=== PATIENT | female | born 1995 | race Caucasian/White ===

== ENCOUNTER 2016-06-09 16:44 | Emergency (ER) | payer OTHER ==
[2016-06-09] MEDS ORDERED: METHOCARBAMOL 500 MG TAB As Ordered ONE (18:19)
[2016-06-09] MEDS ORDERED: ACETAMINOPHEN 325 MG TAB As Ordered ONE (18:20)
--- NOTE | 2016-06-09 19:58 | REP ---
Clinical: Deformity and swelling . Technique: Internal rotation, external rotation, and Y view left shoulder . Findings: No acute fracture or dislocation. The acromioclavicular and glenohumeral joints are intact. No periarticular calcifications or degenerative changes are appreciated. Sub acromial space is normal. Surrounding soft tissues are unremarkable. Impression: Normal left shoulder radiographs. Signed by Agustin Lantigua MD 06/09/2016 07:49 P
--- NOTE | 2016-06-09 20:10 | EDDOCDS ---
Nurse's Notes [facility] Name: Martha Bass Age: 21 yrs Sex: Female : 1995 Arrival Date: 06/09/2016 Time: 16:44 Bed PR Private MD: No Pcp Diagnosis: Other sprain of left shoulder joint Presentation: 06/09 16:47 Presenting complaint: Patient states: Pt presents with left shoulder pain since she dls rolled over in bed on Thursday night. Pain is just getting worse. Adult Sepsis Screening: The patient does not have new or worsening altered mentation. Patient's respiratory rate is less than 22. Systolic blood pressure is greater than 100. Patient has a qSOFA score of 0- Negative Sepsis Screen. Suicide/Homicide risk assessment- the patient denies having any suicidal and/or homicidal ideations and does not present with any other emotional, behavioral or mental health complaints. Status: Patient is not a servicenow administrator developer or dependent. Transition of care: patient was not received from another setting of care. 16:47 Acuity: ROXANNA Level 4 dls 16:47 Method Of Arrival: Walkin/Carried/Asstd dls Triage Assessment: 16:51 General: Appears in no apparent distress, well nourished, well groomed, Behavior is dls cooperative. Pain: Pain currently is 5 out of 10 on a pain scale. HIV screening NA for this visit Offered previously. 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 none - PMHx: none; - PSHx: none; - Social history: Smoking status: Patient/guardian denies using No barriers to communication noted, The patient speaks fluent Setswana. - Family history: Not pertinent. - : The pt / caregiver states he / she is not on anticoagulants. Home medication list is obtained from the patient. - Exposure Risk Screening:: None identified. Screenin:08 Screening information is obtained from the patient. Fall risk: No risks identified. jmb Assistance ADL's: requires no assistance with activities of daily living. Abuse/DV Screen: The patient / caregiver reports he/she is: not in a situation that causes fear, pain or injury. Nutritional screening: No deficits noted. Advance Directives: Currently, there is no health care proxy. There is no active DNR order. There is no living will. There is no Power of Interior Wall Assembler. home support is adequate. Assessment: 20:08 General: Patient instructed on discharge instructions. Patient asked if there were any b questions regarding discharge, patient stated no. Patient signed discharge instructions. Patient discharged in stable condition. . Vital Signs: 16:45 BP 161 / 85; Pulse 105; Resp 18 S; Temp 98.6(O); Pulse Ox 100% on R/A; Weight 82.1 kg dd6 (M); Height 5 ft. 0 in. (152.40 cm) (R); 20:07 BP 173 / 85; Pulse 93; Resp 18; Temp 98.3(O); Pulse Ox 100% on R/A; Pain 6/10; ar3 16:45 Body Mass Index 35.35 (82.10 kg, 152.40 cm) dd6 Vitals: 16:45 Log In Time: June 09, 2016 at 16:43. dd6 ED Course: 16:45 Patient visited by Silviano Ramos PCA. dd6 16:45 No Pcp is Private Physician. dd6 16:45 Patient moved to Waiting dd6 16:46 Patient moved to Pre RCE dd6 16:48 Triage Initiated dls 17:41 Patient moved to Triage 3 ct3 17:42 Patient moved to Pre RCE ct3 18:08 Patient moved to Triage 1 ct3 18:12 [facility] ck7 18:12 Tracee Hogan MD is Attending Physician. ck7 18:12 Patient visited by Burak Prieto RPA-C. ck7 18:22 Patient moved to TR3 kcs 18:26 [facility] Payment Agreement was scanned into [employer] and attached to record. gjb 18:43 Patient visited by Kelly Ellis PCA. ct3 19:14 Patient visited by Burak Prieto RPA-C. ck7 19:47 Patient visited by Burak Prieto RPA-C. ck7 20:02 [facility] is Referral Physician. ck7 20:04 Patient moved to PR1 / 25 ar3 20:07 Patient visited by Tri Goodwin PCA. ar3 20:08 The patient / caregiver is instructed regarding the plan of care and ED course. jmb 20:08 No IV's were initiated during this patient's visit. No procedures done that require jmb assistance. Administered Medications: 18:22 Drug: Acetaminophen 650 mg [acetaminophen 325 mg tablet (2 tabs)] Route: PO; kcs 18:22 Drug: Methocarbamol 1 grams [methocarbamol 500 mg tablet (2 tabs)] Route: PO; kcs Order Results: There are currently no results for this order. Outcome: 20:03 Discharge ordered by Provider. ck7 20:08 Discharge Assessment: Patient awake, alert and oriented x 3. No cognitive and/or jmb functional deficits noted. Patient verbalized understanding of disposition instructions. Patient awake and alert. obeys commands, Oriented to person, place and time. Patient verbalized understanding of disposition instructions. Patient has no functional deficits. patient administered narcotics - no. The following High Risk Discharge criteria are identified: None. Discharged to home ambulatory, with significant other. Condition: stable. Discharge instructions given to patient, Instructed on discharge instructions, follow up and referral plans. medication usage, Demonstrated understanding of instructions, medications, Pt was receptive of discharge instructions/ teaching. No special radiology studies were completed. Property sent home with patient. 20:10 Patient left the ED. [facility] Signatures: Noa Edge, RN Kaylen Pennington RN Silviano Buchanan, SENIOR ART DIRECTOR SENIOR ART DIRECTOR dd6 Tri Goodwin, SENIOR ART DIRECTOR SENIOR ART DIRECTOR ar3 Kelly Ellis, SENIOR ART DIRECTOR SENIOR ART DIRECTOR ct3 Burak Prieto, RPA-C RPA-Cck7 Isaac Lee RN RN jmb Beck, Gabriela gjb MTDD
--- NOTE | 2016-06-09 20:10 | EDDOCDS ---
Physician Documentation [facility] Name: Martha Bass Age: 21 yrs Sex: Female : 1995 Arrival Date: 06/09/2016 Time: 16:44 Bed PR Private MD: No Pcp Disposition: 06/09/16 20:03 Discharged to Home/Self Care. Impression: Other sprain of left shoulder joint. - Condition is Stable. - Discharge Instructions: Shoulder Sprain. - Prescriptions for Ibuprofen 600 mg Oral Tablet - take 1 tablet by ORAL route every 6 hours As needed take with food; 30 tablet. Robaxin 500 mg Oral Tablet - take 2 tablet by ORAL route every 6 hours As needed; 40 tablet. - Medication Reconciliation, Local Pharmacy Hours form. - Follow up: [facility]; When: 2 - 3 days; Reason: Recheck today's complaints, Continuance of care. - Problem is new. - Symptoms have improved. - Notes: USE MEDICATIONS INSTRUCTED, FOLLOW UP WITH [facility], RETURN TO THE ER IF THE SYMPTOMS WORSEN OR BECOME CONCERNING Historical: - Allergies: no known allergies; - Home Meds: 1. none - PMHx: none; - PSHx: none; - Social history: Smoking status: Patient/guardian denies using No barriers to communication noted, The patient speaks fluent Ethiopian. - Family history: Not pertinent. - : The pt / caregiver states he / she is not on anticoagulants. Home medication list is obtained from the patient. - Exposure Risk Screening:: None identified. 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 0 in. (152.40 cm) (R); 20:07 BP 173 / 85; Pulse 93; Resp 18; Temp 98.3(O); Pulse Ox 100% on R/A; Pain 6/10; ar3 16:45 Body Mass Index 35.35 (82.10 kg, 152.40 cm) dd6 MDM: 18:17 Acetaminophen Tablet 650 mg PO once ordered. ck7 18:17 Methocarbamol 1 grams PO once ordered. ck7 18:18 Shoulder, Complete Ordered. EDMS 18:26 [facility] [place] Agreement was scanned into [employer] and attached to record. hank 18: Financial registration complete. gjb Administered Medications: 18:22 Drug: Acetaminophen 650 mg [acetaminophen 325 mg tablet (2 tabs)] Route: PO; kcs 18:22 Drug: Methocarbamol 1 grams [methocarbamol 500 mg tablet (2 tabs)] Route: PO; kcs Signatures: Dispatcher [employer] EDFL Kaylen Johnson, RN Burak Leigh, RPA-C RPA-Cck7 Isaac Lee RN RN jmb Beck, Gabriela gjb Sleeman, Kacey RN kcs The chart was reviewed and I authenticate all verbal orders and agree with the evaluation and treatment provided.Attachments: 18:26 [facility] Payment Agreement gjdonell MTDD
--- NOTE | 2016-06-11 21:11 | EDDOCDS ---
Physician Documentation [facility] Name: Martha Bass Age: 21 yrs Sex: Female : 1995 Arrival Date: 06/09/2016 Time: 16:44 Bed PR Private MD: No Pcp Disposition: 06/09/16 20:03 Discharged to Home/Self Care. Impression: Other sprain of left shoulder joint. - Condition is Stable. - Discharge Instructions: Shoulder Sprain. - Prescriptions for Ibuprofen 600 mg Oral Tablet - take 1 tablet by ORAL route every 6 hours As needed take with food; 30 tablet. Robaxin 500 mg Oral Tablet - take 2 tablet by ORAL route every 6 hours As needed; 40 tablet. - Medication Reconciliation, Local Pharmacy Hours form. - Follow up: [facility]; When: 2 - 3 days; Reason: Recheck today's complaints, Continuance of care. - Problem is new. - Symptoms have improved. - Notes: USE MEDICATIONS INSTRUCTED, FOLLOW UP WITH [facility], RETURN TO THE ER IF THE SYMPTOMS WORSEN OR BECOME CONCERNING Historical: - Allergies: no known allergies; - Home Meds: 1. none - PMHx: none; - PSHx: none; - Social history: Smoking status: Patient/guardian denies using No barriers to communication noted, The patient speaks fluent Chilean. - Family history: Not pertinent. - : The pt / caregiver states he / she is not on anticoagulants. Home medication list is obtained from the patient. - Exposure Risk Screening:: None identified. 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 0 in. (152.40 cm) (R); 20:07 BP 173 / 85; Pulse 93; Resp 18; Temp 98.3(O); Pulse Ox 100% on R/A; Pain 6/10; ar3 16:45 Body Mass Index 35.35 (82.10 kg, 152.40 cm) dd6 MDM: 18:17 Acetaminophen Tablet 650 mg PO once ordered. ck7 18:17 Methocarbamol 1 grams PO once ordered. ck7 18:18 Shoulder, Complete Ordered. EDMS 18:26 [facility] Payment Agreement was scanned into [employer] and attached to record. [facility] 18: Financial registration complete. [facility] 06/10 05:54 T-Sheet-- Draft Copy was scanned into [employer] and attached to record. lja Administered Medications: 06/09 18:22 Drug: Acetaminophen 650 mg [acetaminophen 325 mg tablet (2 tabs)] Route: PO; kcs 18:22 Drug: Methocarbamol 1 grams [methocarbamol 500 mg tablet (2 tabs)] Route: PO; kcs Signatures: Dispatcher [employer] EDMS Kaylen Johnson, RN Burak Leigh, AGNIESZKA-C RPA-Cck7 Isaac Lee RN RN jmb Arel, Sarah Koch Kacey RN kcs The chart was reviewed and I authenticate all verbal orders and agree with the evaluation and treatment provided.Attachments: 18:26 [facility] Payment Agreement [facility] 06/10 05:54 T-Sheet-- Draft Copy [facility] Chart Complete MTDD
--- NOTE | 2016-06-11 21:11 | EDDOCDS ---
Nurse's Notes [facility] Name: Martha Bass Age: 21 yrs Sex: Female : 1995 Arrival Date: 06/09/2016 Time: 16:44 Bed PR Private MD: No Pcp Diagnosis: Other sprain of left shoulder joint Presentation: 06/09 16:47 Presenting complaint: Patient states: Pt presents with left shoulder pain since she dls rolled over in bed on Thursday night. Pain is just getting worse. Adult Sepsis Screening: The patient does not have new or worsening altered mentation. Patient's respiratory rate is less than 22. Systolic blood pressure is greater than 100. Patient has a qSOFA score of 0- Negative Sepsis Screen. Suicide/Homicide risk assessment- the patient denies having any suicidal and/or homicidal ideations and does not present with any other emotional, behavioral or mental health complaints. Status: Patient is not a service architect or dependent. Transition of care: patient was not received from another setting of care. 16:47 Acuity: ROXANNA Level 4 dls 16:47 Method Of Arrival: Walkin/Carried/Asstd dls Triage Assessment: 16:51 General: Appears in no apparent distress, well nourished, well groomed, Behavior is dls cooperative. Pain: Pain currently is 5 out of 10 on a pain scale. HIV screening NA for this visit Offered previously. 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 none - PMHx: none; - PSHx: none; - Social history: Smoking status: Patient/guardian denies using No barriers to communication noted, The patient speaks fluent Mohawk. - Family history: Not pertinent. - : The pt / caregiver states he / she is not on anticoagulants. Home medication list is obtained from the patient. - Exposure Risk Screening:: None identified. Screenin:08 Screening information is obtained from the patient. Fall risk: No risks identified. jmb Assistance ADL's: requires no assistance with activities of daily living. Abuse/DV Screen: The patient / caregiver reports he/she is: not in a situation that causes fear, pain or injury. Nutritional screening: No deficits noted. Advance Directives: Currently, there is no health care proxy. There is no active DNR order. There is no living will. There is no Power of Healthcare Interpreter. home support is adequate. Assessment: 20:08 General: Patient instructed on discharge instructions. Patient asked if there were any b questions regarding discharge, patient stated no. Patient signed discharge instructions. Patient discharged in stable condition. . Vital Signs: 16:45 BP 161 / 85; Pulse 105; Resp 18 S; Temp 98.6(O); Pulse Ox 100% on R/A; Weight 82.1 kg dd6 (M); Height 5 ft. 0 in. (152.40 cm) (R); 20:07 BP 173 / 85; Pulse 93; Resp 18; Temp 98.3(O); Pulse Ox 100% on R/A; Pain 6/10; ar3 16:45 Body Mass Index 35.35 (82.10 kg, 152.40 cm) dd6 Vitals: 16:45 Log In Time: June 09, 2016 at 16:43. dd6 ED Course: 16:45 Patient visited by Silviano Ramos PCA. dd6 16:45 No Pcp is Private Physician. dd6 16:45 Patient moved to Waiting dd6 16:46 Patient moved to Pre RCE dd6 16:48 Triage Initiated dls 17:41 Patient moved to Triage 3 ct3 17:42 Patient moved to Pre RCE ct3 18:08 Patient moved to Triage 1 ct3 18:12 [facility] ck[facility] 18:12 Tracee Hogan MD is Attending Physician. ck7 18:12 Patient visited by Burak Prieto RPA-C. ck7 18:22 Patient moved to TR3 kcs 18:26 [facility] Payment Agreement was scanned into [employer] and attached to record. gjb 18:43 Patient visited by Kelly Ellis PCA. ct3 19:14 Patient visited by Burak Prieto RPA-C. ck7 19:47 Patient visited by Burak Prieto RPA-C. ck7 20:02 [facility] is Referral Physician. ck7 20:04 Patient moved to PR1 / 25 ar3 20:07 Patient visited by Tri Goodwin PCA. ar3 20:08 The patient / caregiver is instructed regarding the plan of care and ED course. jmb 20:08 No IV's were initiated during this patient's visit. No procedures done that require jmb assistance. 20:20 Shoulder, Complete Returned. [facility] 06/10 05:54 T-Sheet-- Draft Copy was scanned into [employer] and attached to record. lja Administered Medications: 06/09 18:22 Drug: Acetaminophen 650 mg [acetaminophen 325 mg tablet (2 tabs)] Route: PO; kcs 18:22 Drug: Methocarbamol 1 grams [methocarbamol 500 mg tablet (2 tabs)] Route: PO; kcs Order Results: Radiology Order: Shoulder, Complete Test: Shoulder, Complete REASON FOR EXAMINATION: Deformity/Swelling; Clinical: Deformity and swelling .; ; Technique: Internal rotation, external rotation, and Y view left shoulder .; ; Findings:; No acute fracture or dislocation. The acromioclavicular and glenohumeral joints; are intact. No periarticular calcifications or degenerative changes are; appreciated. Sub acromial space is normal. Surrounding soft tissues are; unremarkable.; ; Impression:; Normal left shoulder radiographs.; ; ; Signed by; Agustin Lantigua MD 06/09/2016 07:49 P; Outcome: 20:03 Discharge ordered by Provider. ck7 20:08 Discharge Assessment: Patient awake, alert and oriented x 3. No cognitive and/or jmb functional deficits noted. Patient verbalized understanding of disposition instructions. Patient awake and alert. obeys commands, Oriented to person, place and time. Patient verbalized understanding of disposition instructions. Patient has no functional deficits. patient administered narcotics - no. The following High Risk Discharge criteria are identified: None. Discharged to home ambulatory, with significant other. Condition: stable. Discharge instructions given to patient, Instructed on discharge instructions, follow up and referral plans. medication usage, Demonstrated understanding of instructions, medications, Pt was receptive of discharge instructions/ teaching. No special radiology studies were completed. Property sent home with patient. 20:10 Patient left the ED. jmb Signatures: [facility]patcher [facility] Noa Edge RN RN Kaylen Arrieta RN RN dls Desormeau, Daniell, EXECUTIVE SERVICES ADMINISTRATOR EXECUTIVE SERVICES ADMINISTRATOR dd6 Tri Goodwin, EXECUTIVE SERVICES ADMINISTRATOR EXECUTIVE SERVICES ADMINISTRATOR ar3 Kelly Ellis, EXECUTIVE SERVICES ADMINISTRATOR EXECUTIVE SERVICES ADMINISTRATOR ct3 Burak Prieto, RPA-C RPA-Cck7 Isaac Lee,RN RN kaylin Aremarichuy, Sarah Koch Chart Complete MTDD
--- NOTE | 2016-06-11 21:11 | EDDOCDS ---
Physician Documentation [facility] Name: Martha Bass Age: 21 yrs Sex: Female : 1995 Arrival Date: 06/09/2016 Time: 16:44 Bed PR Private MD: No Pcp Disposition: 06/09/16 20:03 Discharged to Home/Self Care. Impression: Other sprain of left shoulder joint. - Condition is Stable. - Discharge Instructions: Shoulder Sprain. - Prescriptions for Ibuprofen 600 mg Oral Tablet - take 1 tablet by ORAL route every 6 hours As needed take with food; 30 tablet. Robaxin 500 mg Oral Tablet - take 2 tablet by ORAL route every 6 hours As needed; 40 tablet. - Medication Reconciliation, Local Pharmacy Hours form. - Follow up: [facility]; When: 2 - 3 days; Reason: Recheck today's complaints, Continuance of care. - Problem is new. - Symptoms have improved. - Notes: USE MEDICATIONS INSTRUCTED, FOLLOW UP WITH [facility], RETURN TO THE ER IF THE SYMPTOMS WORSEN OR BECOME CONCERNING Historical: - Allergies: no known allergies; - Home Meds: 1. none - PMHx: none; - PSHx: none; - Social history: Smoking status: Patient/guardian denies using No barriers to communication noted, The patient speaks fluent Macedonian. - Family history: Not pertinent. - : The pt / caregiver states he / she is not on anticoagulants. Home medication list is obtained from the patient. - Exposure Risk Screening:: None identified. 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 0 in. (152.40 cm) (R); 20:07 BP 173 / 85; Pulse 93; Resp 18; Temp 98.3(O); Pulse Ox 100% on R/A; Pain 6/10; ar3 16:45 Body Mass Index 35.35 (82.10 kg, 152.40 cm) dd6 MDM: 18:17 Acetaminophen Tablet 650 mg PO once ordered. ck7 18:17 Methocarbamol 1 grams PO once ordered. ck7 18:18 Shoulder, Complete Ordered. EDMS 18:26 [facility] Payment Agreement was scanned into [employer] and attached to record. [facility] 18: Financial registration complete. [facility] 06/10 05:54 T-Sheet-- Draft Copy was scanned into [employer] and attached to record. lja Administered Medications: 06/09 18:22 Drug: Acetaminophen 650 mg [acetaminophen 325 mg tablet (2 tabs)] Route: PO; kcs 18:22 Drug: Methocarbamol 1 grams [methocarbamol 500 mg tablet (2 tabs)] Route: PO; kcs Signatures: Dispatcher [employer] EDMS Kaylen Johnson, RN Burak Leigh, AGNIESZKA-C RPA-Cck7 Isaac Lee RN RN jmb Arel, Sarah Koch Kacey RN kcs The chart was reviewed and I authenticate all verbal orders and agree with the evaluation and treatment provided.Attachments: 18:26 [facility] Payment Agreement [facility] 06/10 05:54 T-Sheet-- Draft Copy [facility] Chart Complete MTDD
--- NOTE | 2016-06-20 13:57 | EDDOCDS ---
Nurse's Notes [facility] Name: Martha Bass Age: 21 yrs Sex: Female : 1995 Arrival Date: 06/09/2016 Time: 16:44 Bed PR Private MD: No Pcp Diagnosis: Other sprain of left shoulder joint Presentation: 06/09 16:47 Presenting complaint: Patient states: Pt presents with left shoulder pain since she dls rolled over in bed on Thursday night. Pain is just getting worse. Adult Sepsis Screening: The patient does not have new or worsening altered mentation. Patient's respiratory rate is less than 22. Systolic blood pressure is greater than 100. Patient has a qSOFA score of 0- Negative Sepsis Screen. Suicide/Homicide risk assessment- the patient denies having any suicidal and/or homicidal ideations and does not present with any other emotional, behavioral or mental health complaints. Status: Patient is not a director public service or dependent. Transition of care: patient was not received from another setting of care. 16:47 Acuity: ROXANNA Level 4 dls 16:47 Method Of Arrival: Walkin/Carried/Asstd dls Triage Assessment: 16:51 General: Appears in no apparent distress, well nourished, well groomed, Behavior is dls cooperative. Pain: Pain currently is 5 out of 10 on a pain scale. HIV screening NA for this visit Offered previously. 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 none - PMHx: none; - PSHx: none; - Social history: Smoking status: Patient/guardian denies using No barriers to communication noted, The patient speaks fluent Ukrainian. - Family history: Not pertinent. - : The pt / caregiver states he / she is not on anticoagulants. Home medication list is obtained from the patient. - Exposure Risk Screening:: None identified. Screenin:08 Screening information is obtained from the patient. Fall risk: No risks identified. jmb Assistance ADL's: requires no assistance with activities of daily living. Abuse/DV Screen: The patient / caregiver reports he/she is: not in a situation that causes fear, pain or injury. Nutritional screening: No deficits noted. Advance Directives: Currently, there is no health care proxy. There is no active DNR order. There is no living will. There is no Power of Soap Slabber. home support is adequate. Assessment: 20:08 General: Patient instructed on discharge instructions. Patient asked if there were any b questions regarding discharge, patient stated no. Patient signed discharge instructions. Patient discharged in stable condition. . Vital Signs: 16:45 BP 161 / 85; Pulse 105; Resp 18 S; Temp 98.6(O); Pulse Ox 100% on R/A; Weight 82.1 kg dd6 (M); Height 5 ft. 0 in. (152.40 cm) (R); 20:07 BP 173 / 85; Pulse 93; Resp 18; Temp 98.3(O); Pulse Ox 100% on R/A; Pain 6/10; ar3 16:45 Body Mass Index 35.35 (82.10 kg, 152.40 cm) dd6 Vitals: 16:45 Log In Time: June 09, 2016 at 16:43. dd6 ED Course: 16:45 Patient visited by Silviano Ramos PCA. dd6 16:45 No Pcp is Private Physician. dd6 16:45 Patient moved to Waiting dd6 16:46 Patient moved to Pre RCE dd6 16:48 Triage Initiated dls 17:41 Patient moved to Triage 3 ct3 17:42 Patient moved to Pre RCE ct3 18:08 Patient moved to Triage 1 ct3 18:12 [facility] 18:12 Tracee Hogan MD is Attending Physician. ck7 18:12 Patient visited by Burak Prieto RPA-C. ck7 18:22 Patient moved to TR3 kcs 18:26 [facility] Payment Agreement was scanned into [employer] and attached to record. gjb 18:43 Patient visited by Kelly Ellis PCA. ct3 19:14 Patient visited by Burak Prieto RPA-C. ck7 19:47 Patient visited by Burak Prieto RPA-C. ck7 20:02 [facility] is Referral Physician. ck7 20:04 Patient moved to PR1 / 25 ar3 20:07 Patient visited by Tri Goodwin PCA. ar3 20:08 The patient / caregiver is instructed regarding the plan of care and ED course. jmb 20:08 No IV's were initiated during this patient's visit. No procedures done that require jmb assistance. 20:20 Shoulder, Complete Returned. [facility] 06/10 05:54 T-Sheet-- Draft Copy was scanned into [employer] and attached to record. lja Administered Medications: 06/09 18:22 Drug: Acetaminophen 650 mg [acetaminophen 325 mg tablet (2 tabs)] Route: PO; kcs 18:22 Drug: Methocarbamol 1 grams [methocarbamol 500 mg tablet (2 tabs)] Route: PO; kcs Order Results: Radiology Order: Shoulder, Complete Test: Shoulder, Complete REASON FOR EXAMINATION: Deformity/Swelling; Clinical: Deformity and swelling .; ; Technique: Internal rotation, external rotation, and Y view left shoulder .; ; Findings:; No acute fracture or dislocation. The acromioclavicular and glenohumeral joints; are intact. No periarticular calcifications or degenerative changes are; appreciated. Sub acromial space is normal. Surrounding soft tissues are; unremarkable.; ; Impression:; Normal left shoulder radiographs.; ; ; Signed by; Agustin Lantigua MD 06/09/2016 07:49 P; Outcome: 20:03 Discharge ordered by Provider. ck7 20:08 Discharge Assessment: Patient awake, alert and oriented x 3. No cognitive and/or jmb functional deficits noted. Patient verbalized understanding of disposition instructions. Patient awake and alert. obeys commands, Oriented to person, place and time. Patient verbalized understanding of disposition instructions. Patient has no functional deficits. patient administered narcotics - no. The following High Risk Discharge criteria are identified: None. Discharged to home ambulatory, with significant other. Condition: stable. Discharge instructions given to patient, Instructed on discharge instructions, follow up and referral plans. medication usage, Demonstrated understanding of instructions, medications, Pt was receptive of discharge instructions/ teaching. No special radiology studies were completed. Property sent home with patient. 20:10 Patient left the ED. jmb Signatures: [facility] Noa Edge RN RN Kaylen Arrieta RN RN dls Desormeau, Daniell, BRASS BUFFER BRASS BUFFER dd6 Tri Goodwin, BRASS BUFFER BRASS BUFFER ar3 Kelly Ellis, BRASS BUFFER BRASS BUFFER ct3 Burak Prieto, RPA-C RPA-Cck7 Isaac Lee,RN RN kaylin Aremarichuy, Sarah Koch Chart Complete MTDD
--- NOTE | 2016-06-20 13:57 | EDDOCDS ---
Physician Documentation [facility] Name: Martha Bass Age: 21 yrs Sex: Female : 1995 Arrival Date: 06/09/2016 Time: 16:44 Bed PR Private MD: No Pcp Disposition: 06/09/16 20:03 Discharged to Home/Self Care. Impression: Other sprain of left shoulder joint. - Condition is Stable. - Discharge Instructions: Shoulder Sprain. - Prescriptions for Ibuprofen 600 mg Oral Tablet - take 1 tablet by ORAL route every 6 hours As needed take with food; 30 tablet. Robaxin 500 mg Oral Tablet - take 2 tablet by ORAL route every 6 hours As needed; 40 tablet. - Medication Reconciliation, Local Pharmacy Hours form. - Follow up: [facility]; When: 2 - 3 days; Reason: Recheck today's complaints, Continuance of care. - Problem is new. - Symptoms have improved. - Notes: USE MEDICATIONS INSTRUCTED, FOLLOW UP WITH [facility], RETURN TO THE ER IF THE SYMPTOMS WORSEN OR BECOME CONCERNING Historical: - Allergies: no known allergies; - Home Meds: 1. none - PMHx: none; - PSHx: none; - Social history: Smoking status: Patient/guardian denies using No barriers to communication noted, The patient speaks fluent Turkmen. - Family history: Not pertinent. - : The pt / caregiver states he / she is not on anticoagulants. Home medication list is obtained from the patient. - Exposure Risk Screening:: None identified. 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 0 in. (152.40 cm) (R); 20:07 BP 173 / 85; Pulse 93; Resp 18; Temp 98.3(O); Pulse Ox 100% on R/A; Pain 6/10; ar3 16:45 Body Mass Index 35.35 (82.10 kg, 152.40 cm) dd6 MDM: 18:17 Acetaminophen Tablet 650 mg PO once ordered. ck7 18:17 Methocarbamol 1 grams PO once ordered. ck7 18:18 Shoulder, Complete Ordered. EDMS 18:26 [place] was scanned into [employer] and attached to record. [email or web address] 18: Financial registration complete. hank 06/10 05:54 T-Sheet-- Draft Copy was scanned into [employer] and attached to record. lja Administered Medications: 06/09 18:22 Drug: Acetaminophen 650 mg [acetaminophen 325 mg tablet (2 tabs)] Route: PO; kcs 18:22 Drug: Methocarbamol 1 grams [methocarbamol 500 mg tablet (2 tabs)] Route: PO; kcs Signatures: Dispatcher [employer] EDMS Kaylen Johnson, RN Burak Leigh, AGNIESZKA-C RPA-Cck7 Isaac LeeRN RN kaylin Davis, Sarah Koch Kacey RN kcs The chart was reviewed and I authenticate all verbal orders and agree with the evaluation and treatment provided.Attachments: 18:26 [facility] Payment Agreement [facility] Chart Complete MTDD
--- NOTE | 2016-06-20 13:57 | EDDOCDS ---
Physician Documentation [facility] Name: Martha Bass Age: 21 yrs Sex: Female : 1995 Arrival Date: 06/09/2016 Time: 16:44 Bed PR Private MD: No Pcp Disposition: 06/09/16 20:03 Discharged to Home/Self Care. Impression: Other sprain of left shoulder joint. - Condition is Stable. - Discharge Instructions: Shoulder Sprain. - Prescriptions for Ibuprofen 600 mg Oral Tablet - take 1 tablet by ORAL route every 6 hours As needed take with food; 30 tablet. Robaxin 500 mg Oral Tablet - take 2 tablet by ORAL route every 6 hours As needed; 40 tablet. - Medication Reconciliation, Local Pharmacy Hours form. - Follow up: [facility]; When: 2 - 3 days; Reason: Recheck today's complaints, Continuance of care. - Problem is new. - Symptoms have improved. - Notes: USE MEDICATIONS INSTRUCTED, FOLLOW UP WITH [facility], RETURN TO THE ER IF THE SYMPTOMS WORSEN OR BECOME CONCERNING Historical: - Allergies: no known allergies; - Home Meds: 1. none - PMHx: none; - PSHx: none; - Social history: Smoking status: Patient/guardian denies using No barriers to communication noted, The patient speaks fluent Moldovan. - Family history: Not pertinent. - : The pt / caregiver states he / she is not on anticoagulants. Home medication list is obtained from the patient. - Exposure Risk Screening:: None identified. 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 0 in. (152.40 cm) (R); 20:07 BP 173 / 85; Pulse 93; Resp 18; Temp 98.3(O); Pulse Ox 100% on R/A; Pain 6/10; ar3 16:45 Body Mass Index 35.35 (82.10 kg, 152.40 cm) dd6 MDM: 18:17 Acetaminophen Tablet 650 mg PO once ordered. ck7 18:17 Methocarbamol 1 grams PO once ordered. ck7 18:18 Shoulder, Complete Ordered. EDMS 18:26 [place] [place] Payment Agreement was scanned into [employer] and attached to record. [email or web address] 18: Financial registration complete. hank 06/10 05:54 T-Sheet-- Draft Copy was scanned into [employer] and attached to record. lja Administered Medications: 06/09 18:22 Drug: Acetaminophen 650 mg [acetaminophen 325 mg tablet (2 tabs)] Route: PO; kcs 18:22 Drug: Methocarbamol 1 grams [methocarbamol 500 mg tablet (2 tabs)] Route: PO; kcs Signatures: Dispatcher [employer] EDMS Kaylen Johnson, RN Burak Leigh, AGNIESZKA-C RPA-Cck7 Isaac LeeRN RN kaylin Davis, Sarah Koch Kacey RN kcs The chart was reviewed and I authenticate all verbal orders and agree with the evaluation and treatment provided.Attachments: 18:26 [facility] Payment Agreement [facility] Chart Complete MTDD
== END 2016-06-09 20:10 | disposition home or self-care (01) ==
LOC: M ED 16:44
DX: S46.902A Unspecified injury of unspecified muscle, fascia and tendon at shoulder and upper arm level, left arm, initial encounter (principal); X58.XXXA Exposure to other specified factors, initial encounter; Y92.019 Unspecified place in single-family (private) house as the place of occurrence of the external cause; Y93.89 Activity, other specified; Y99.8 Other external cause status

== ENCOUNTER → 2018-07-30 | Outpatient (CLI) | payer OTHER ==
[2018-07-30 14:20] LABS: BASO % 0.3 % (0.0-1.0); EOS # 0.1 10^3/uL (0.0-0.50); EOS % 0.9 % (0.0-3.0); HEMATOCRIT 37.2 % (36.0-47.0); HEMOGLOBIN 12.3 g/dl (12.0-15.5); LYMPH # 1.6 10^3/uL (1.5-6.5); LYMPH % 14.9 % (24.0-44.0); MEAN CORPUSCULAR HEMOGLOBIN 28.7 pg (27.0-33.0); MEAN CORPUSCULAR HGB CONC 33.1 g/dl (32.0-36.5); MEAN CORPUSCULAR VOLUME 86.9 fl (80.0-96.0); MONO # 0.5 10^3/uL (0.0-0.8); MONO % 4.3 % (0.0-5.0); NEUTROPHILS # 8.2 10^3/uL (1.8-7.7); NEUTROPHILS % 79.1 % (36.0-66.0); PLATELET COUNT, AUTOMATED 317 10^3/uL (150-450); RED BLOOD COUNT 4.28 10^6/uL (4.00-5.40); WHITE BLOOD COUNT 10.4 10^3/uL (4.0-10.0)
[2018-07-30 15:54] LABS: CHLAMYDIA DNA AMPLIFICATION NEGATIVE (NEGATIVE); GC DNA AMPLIFICATION NEGATIVE (NEGATIVE)
[2018-07-30 16:13] LABS: HIV 1&2 SCREEN CENTAUR NEGATIVE (NEGATIVE); RUBELLA IgG QUALITATIVE IMMUNE (IMMUNE)
== END ==
LOC: M SMT 09:27
PROVIDERS: ATTEND Advanced Practice Midwife
DX: Z34.81 Encounter for supervision of other normal pregnancy, first trimester (principal); Z3A.09 9 weeks gestation of pregnancy

== ENCOUNTER → 2018-09-21 | Outpatient (CLI) | payer OTHER ==
--- NOTE | 2018-09-21 09:18 | REP ---
Obstetric sonography: History: Supervision of . Second trimester. Findings: Scanning through the gravid uterus demonstrates a viable single intrauterine gestation in a cephalic lie. motion is observed and heart rate is recorded at 146 beats per minute. A posterior grade 0 placenta is seen without evidence of previa or abruption. Amniotic fluid is subjectively normal. No extrauterine abnormalities observed. There are small bilateral choroid plexus cysts. Four-chamber heart and kidneys are less than optimally seen due to position. The following additional anatomic structures are identified and felt to be sonographically unremarkable: cranium, cavum, cerebellum and posterior fossa, face and profile, lungs, left and right ventricular cardiac outflow tracts, diaphragm, left-sided stomach, abdominal wall cord insertion, three-vessel cord, urinary bladder, spine, upper and lower extremities. Biometry chart: BPD 4.3 cm = 19 weeks 0 days Head circumference 15.8 cm = 18 weeks 5 days Abdominal circumference 14.4 cm = 19 weeks 5 days Femur length 3.2 cm = 19 weeks 6 days Humeral length 2.8 cm = 19 weeks 1 day HC/AC ratio normal 1.10. Cephalic index normal 0.76. Estimated weight 303 grams, 0 pounds 10 ounces, 59th percentile for 19 weeks 2 days. Impression: Viable single intrauterine gestation at 19 weeks 2 days by today's composite sonographic criteria. FLORENCIA by today's sonography February 13, 2019. There are small bilateral choroid plexus cysts. kidneys and four chamber heart views were less than optimally achieved. Electronically Signed by Ricardo Bagley MD 09/21/2018 10:24 A
== END ==
LOC: M RAD 06:48
PROVIDERS: ATTEND Advanced Practice Midwife
DX: Z34.02 Encounter for supervision of normal first pregnancy, second trimester (principal)

== ENCOUNTER → 2018-11-22 | Outpatient (CLI) | payer OTHER ==
[2018-11-22 13:47] LABS: HEMATOCRIT 32.9 % (36.0-47.0); HEMOGLOBIN 10.8 g/dl (12.0-15.5); MEAN CORPUSCULAR HEMOGLOBIN 30.6 pg (27.0-33.0); MEAN CORPUSCULAR HGB CONC 32.8 g/dl (32.0-36.5); MEAN CORPUSCULAR VOLUME 93.2 fl (80.0-96.0); PLATELET COUNT, AUTOMATED 253 10^3/uL (150-450); RED BLOOD COUNT 3.53 10^6/uL (4.00-5.40); WHITE BLOOD COUNT 12.8 10^3/uL (4.0-10.0)
== END ==
LOC: M SMT 08:15
PROVIDERS: ATTEND Advanced Practice Midwife
DX: Z34.02 Encounter for supervision of normal first pregnancy, second trimester (principal)

== ENCOUNTER → 2018-11-26 | Outpatient (CLI) | payer OTHER | LOC: M LAB 07:00 | PROVIDERS: ATTEND Advanced Practice Midwife | DX: R73.02 Impaired glucose tolerance (oral) (principal) ==

== ENCOUNTER → 2019-01-24 | Outpatient (REF) | payer OTHER ==
[~2019-01-24] MED LIST: PREN1CHW6 PO
== END ==
LOC: M LAB REF 19:34
PROVIDERS: ATTEND Advanced Practice Midwife
DX: Z34.83 Encounter for supervision of other normal pregnancy, third trimester (principal); Z3A.00 Weeks of gestation of pregnancy not specified

== ENCOUNTER 2019-01-31 17:10 | Inpatient (IN) | payer OTHER ==
[~2019-01-31] VITALS: Ht 152.4 cm; Wt 97.0 kg
[2019-01-31] VITALS (17 sets, daily range): BP systolic 111–164; BP diastolic 58–108
[2019-01-31] MEDS ORDERED: PREN1CHW6 PO (17:34)
[2019-01-31 18:01] LABS: HEMOGLOBIN 10.4 g/dl (12.0-15.5); MEAN CORPUSCULAR HEMOGLOBIN 29.9 pg (27.0-33.0); MEAN CORPUSCULAR HGB CONC 33.5 g/dl (32.0-36.5); MEAN CORPUSCULAR VOLUME 89.1 fl (80.0-96.0); PLATELET COUNT, AUTOMATED 241 10^3/uL (150-450); RED BLOOD COUNT 3.48 10^6/uL (4.00-5.40)
[2019-01-31 18:16] LABS: TOTAL PROTEIN,RANDOM URINE 115.1 MG/DL (0.0-12.0)
[2019-01-31 18:30] LABS: ALT/SGPT 11 U/L (12-78); BILIRUBIN,TOTAL 0.2 MG/DL (0.2-1.0); GLOMERULAR FILTRATION RATE > 60.0 (>60); LDH LACTATE DEHYDROGENASE 181 U/L (84-246); URIC ACID 5.6 MG/DL (2.6-6.0)
[2019-01-31] MEDS ORDERED: PENICILLIN G POTASSIUM IV 5 MU in D5W MINI-BAG PLUS 100 ML IV STA (18:52)
--- NOTE | 2019-01-31 19:14 | HPE ---
DATE OF ADMISSION: 01/31/2019 Martha is a 23-year-old 1, para 0 at 37 weeks gestation, estimated date of confinement (EDC) of 02/21/2019 based on last menstrual period and confirmed by first trimester ultrasound. She presents to labor and delivery today following a routine appointment where she was found to have elevated blood pressures. She does deny headaches, visual disturbances, epigastric pain and right upper quadrant discomfort. She denies regular contractions, leakage of fluid and vaginal bleeding. The fetus has been active. Her care was initiated at [facility] in the first trimester. Her course has been uncomplicated until today with a diagnosis of preeclampsia. OBSTETRIC HISTORY: Primigravida. OBSTETRIC LABORATORY DATA: A+, antibody screen negative, rubella immune, VDRL nonreactive. Urine culture no growth. Hepatitis B surface antigen negative, HIV negative. Hepatitis C antibody nonreactive. Gonorrhea and chlamydia negative. She declined genetic serum screening laboratories. Gestational diabetic screening elevated at 182. Her three-hour glucose tolerance test was normal, fasting 92, one-hour 176, two-hour 140, three-hour 127. Her GBS is positive. PAST MEDICAL HISTORY: Noncontributory. SURGERIES: None. FAMILY HISTORY: Hypertension. SOCIAL HISTORY: The patient is single. However, the father of the baby is involved and is supportive. She does have her mother at bedside for current support. She is a nonsmoker. She denies alcohol and drug use. There is no history of any sexually transmitted infections. Denies history of abuse, physical, sexual and emotional. ALLERGIES: No known drug allergies. CURRENT MEDICATIONS: vitamin. OBJECTIVE: Temperature 97.5, pulse 91, respiration 1, blood pressure elevated at 153/72, 164/67, 140/83. heart rate category 1, 130 with moderate variability, positive accelerations, no decelerations. No pattern of regular contractions. Her abdomen is gravid, cephalic presentation. Estimated weight 6-1/2 to 7 pounds. Sterile vaginal examination: Fingertip thick, -3 station, posterior, moderate texture. LABORATORY DATA: Uric acid is 5.6, AST is 11, ALT 11, LDH 181, hemoglobin 10.4, hematocrit 31.0, platelets 241. Her spot urine is 0.79. ASSESSMENT: Intrauterine at 37 weeks, heart rate category 1, preeclampsia. PLAN: Admit the patient to labor and delivery. Routine laboratories. Out of bed ad [place]. Start misoprostol 50 mcg by mouth every four hours for cervical ripening. The patient desires an epidural likely when she is uncomfortable. I did review the risks, benefits and alternatives. All of her questions have been answered. She has been verbally consented for emergency (C) section and blood products if they are necessary. I do anticipate cervical ripening.
[2019-01-31] MEDS: miSOPROStol 50 MCG 1/2 TAB (S0191) PO SCH ×2 (19:43→23:00)
[2019-01-31] MEDS ORDERED: PENICILLIN G POTASSIUM IV 2.5 MU in APPROPRIATE DILUENT 1 EA IV SCH (23:00)
[2019-02-01] VITALS (44 sets, daily range): BP systolic 98–149; BP diastolic 62–91
[2019-02-01] MEDS: miSOPROStol 50 MCG 1/2 TAB (S0191) PO SCH ×2 (03:18→07:21)
[2019-02-01] MEDS ORDERED: OXYTOCIN DRIP 30 UNITS in APPROPRIATE DILUENT 1 EA IV SCH (11:45)
--- NOTE | 2019-02-01 11:45 | IPNPDOC ---
Text Note Date of Service The patient was seen on 02/01/19. NOTE S: Feeling periodic contractions, no increase in contraction activity or stre ngth. O: BP: 122/70 Gravid, no real palpable contractions FHR: 120 bpm, mod variability, accels no decels, cat 1 tracing TOCO: contractions not recording well, ctx every 2-6 minutes, 40-60 seconds A: 23 yo at 37w 1d EGA present for Induction of Labor secondary to Pre- Eclampsia P: Heart Rate reassuring No progression on Miso Starting Pit Continue to monitor VS,Fishbone, I+O VS, Fishbone, I+O Laboratory Tests 01/31/19 17:46 Red Blood Count 3.48 L, Mean Corpuscular Volume 89.1, Mean Corpuscular Hemoglobin 29.9, Mean Corpuscular Hemoglobin Concent 33.5, Red Cell Distribution Width 13.6, Aspartate Amino Transf (AST/SGOT) 11, Alanine Aminotransferase (ALT/SGPT) 11 L, Lactate Dehydrogenase 181, Total Bilirubin 0.2, Uric Acid 5.6 Vital Signs Date Time Temp Pulse Resp B/P (MAP) Pulse Ox O2 Delivery O2 Flow Rate FiO2 02/01/19 07:42 83 18 135/88 (104) 02/01/19 07:13 98.1 I&O- Last 24 Hours up to 6 AM 02/01/19 05:59 Intake Total 2700 ml Output Total 600 ml Balance 2100 ml GME ATTESTATION GME ATTESTATION My faculty preceptor for this patient encounter was physically present during the encounter and was fully available. All aspects of the patient interview, examination, medical decision making process, and medical care plan development were reviewed and approved by the faculty preceptor. The faculty preceptor is aware and concurs with the plan as stated in the body of this note and will attest to such by his/her cosignature. SHELLEY SARABIA DO Feb 01, 2019 11:45
[2019-02-01] MEDS ORDERED: PENICILLIN G POTASSIUM IV 5 MU in D5W MINI-BAG PLUS 100 ML IV STA (18:40)
[2019-02-01] MEDS: LR 1,000 ML IV SCH ×2 (18:56→19:36)
[2019-02-01 22:09] LABS: HEMATOCRIT 31.2 % (36.0-47.0); HEMOGLOBIN 10.4 g/dl (12.0-15.5); MEAN CORPUSCULAR HEMOGLOBIN 29.4 pg (27.0-33.0); MEAN CORPUSCULAR HGB CONC 33.3 g/dl (32.0-36.5); MEAN CORPUSCULAR VOLUME 88.1 fl (80.0-96.0); PLATELET COUNT, AUTOMATED 225 10^3/uL (150-450); RED BLOOD COUNT 3.54 10^6/uL (4.00-5.40); WHITE BLOOD COUNT 16.9 10^3/uL (4.0-10.0)
[2019-02-01] MEDS ORDERED: FENTANYL 2MCG/ML ROPIVACAINE 0.2% IN 0.9% NACL 100ML IVBAG As Ordered ONE (22:31)
[2019-02-01] MEDS: PENICILLIN G POTASSIUM IV 2.5 MU in APPROPRIATE DILUENT 1 EA IV SCH (22:50)
[2019-02-01] MEDS ORDERED: NALOXONE INJ 0.4 MG/1 ML VIAL (J2310) IV PRN (23:45)
[2019-02-01] MEDS ORDERED: LACTATED RINGER'S 1000 ML IV PRN (23:45)
[2019-02-01] MEDS ORDERED: FENTANYL/ROPIVACAINE/NACL BAG 100 ML EPIDURAL SCH (23:45)
[2019-02-01] MEDS ORDERED: EPIDURAL COMMENT XX SCH (23:45)
[2019-02-01] MEDS ORDERED: EPIDURAL/PCA KEYS XX PRN (23:45)
[2019-02-01] MEDS ORDERED: ePHEDrine SULFATE 25 MG/5 ML(5MG/ML) SYRINGE IV PRN (23:45)
[2019-02-01] MEDS ORDERED: REFRIGERATOR IV KEYS XX PRN (23:45)
[2019-02-01] MEDS ORDERED: ONDANSETRON 4MG/2ML VIAL (J2405) IV PRN (23:45)
[2019-02-01] MEDS ORDERED: diphenhydrAMINE INJ 50MG/ML VIAL (J1200) IV PRN (23:45)
[2019-02-02] VITALS (41 sets, daily range): BP systolic 97–131; BP diastolic 50–101
[2019-02-02] MEDS: PENICILLIN G POTASSIUM IV 2.5 MU in APPROPRIATE DILUENT 1 EA IV SCH ×3 (02:49→11:17)
[2019-02-02] MEDS: LR 1,000 ML IV SCH (07:15)
--- NOTE | 2019-02-02 12:33 | IPNPDOC ---
Obstetrical Progress Note Date of Service Feb 02, 2019 Subjective Patient reports she is comfortable with her epidural. Objective Vital Signs Date Time Temp Pulse Resp B/P (MAP) Pulse Ox O2 Delivery O2 Flow Rate FiO2 02/02/19 11:12 98.2 63 18 115/70 (85) Assessment Heart Rate (FHR): 120 Variability: Moderate Accelerations: Positive Decelerations: Early Heart Rate Tracing: Category I Tocometer Contractions: Yes Frequency: regular Sterile Vaginal Examination Dilation: complete Effacement (%): 100% Station: +2 Postion/Presentation: Cephalic presentation Assessment and Plan Weeks & Days 37.2 Status: Reassuring Anticipate: Vaginal Delivery JERMAINE KRUEGER CNM Feb 02, 2019 12:33
[2019-02-02] MEDS ORDERED: OXYTOCIN DRIP 30 UNITS in APPROPRIATE DILUENT 1 EA IV SCH (15:42)
[2019-02-02] MEDS ORDERED: METHYLERGONOVINE MALEATE 0.2 MG TAB PO PRN (15:45)
[2019-02-02] MEDS ORDERED: ACETAMINOPHEN TAB 650MG DOSE (2X325MG) PO PRN (15:45)
[2019-02-02] MEDS ORDERED: DOCUSATE SODIUM 100 MG CAP PO PRN (15:45)
[2019-02-02] MEDS ORDERED: IBUPROFEN 800 MG TAB PO PRN (15:45)
[2019-02-02] MEDS ORDERED: IBUPROFEN 600 MG TAB PO PRN (15:45)
[2019-02-02] MEDS ORDERED: RHOGAM 300 MCG (1500 IU) INJ (J2790) IM SCH (15:45)
[2019-02-02] MEDS ORDERED: ANUSOL HC CREAM 30GM TOP PRN (15:45)
[2019-02-02] MEDS ORDERED: MEASLES,MUMPS,RUBELLA VACCINE INJ (MMR-II) (90707) SC SCH (15:45)
[2019-02-02] MEDS ORDERED: DIBUCAINE 1% OINTMENT 30GM TOP PRN (15:45)
[2019-02-02] MEDS ORDERED: ACETAMINOPHEN 500 MG TAB PO PRN (15:45)
[2019-02-03 02:13] VITALS: BP 104/55
[2019-02-03 06:29] VITALS: BP 132/91
[2019-02-03 06:34] LABS: HEMATOCRIT 25.9 % (36.0-47.0); HEMOGLOBIN 8.6 g/dl (12.0-15.5); MEAN CORPUSCULAR HEMOGLOBIN 29.2 pg (27.0-33.0); MEAN CORPUSCULAR HGB CONC 33.2 g/dl (32.0-36.5); MEAN CORPUSCULAR VOLUME 87.8 fl (80.0-96.0); PLATELET COUNT, AUTOMATED 187 10^3/uL (150-450); RED BLOOD COUNT 2.95 10^6/uL (4.00-5.40); WHITE BLOOD COUNT 12.4 10^3/uL (4.0-10.0)
[2019-02-03 07:04] LABS: ALT/SGPT 14 U/L (12-78); BILIRUBIN,TOTAL 0.3 MG/DL (0.2-1.0); CREATININE FOR GFR 1.14 MG/DL (0.55-1.30); GLOMERULAR FILTRATION RATE > 60.0 (>60); LDH LACTATE DEHYDROGENASE 217 U/L (84-246); URIC ACID 7.3 MG/DL (2.6-6.0)
--- NOTE | 2019-02-03 07:22 | IPNPDOC ---
Text Note Date of Service The patient was seen on 02/03/19. NOTE Day 1 s/p ; complicated by pre-eclampsia S: pain well controlled, lochia and bleeding decreasing, voiding spontaneously, ambulating without assistance, tolerating regular diet.Formula feeding. No headaches or vision changes. Leg swelling decreasing. O: vitals stable Heart: RRR, no murmurs/gallops/rubs Lungs: CTA BL Abd: Fundus U-2 and firm Ext: mild bilateral leg swelling, nontender, Tom's negative bilaterally A/P: 23 yo G1 now P1. day 1 s/p . Hemodynamically stable, afebrile, good pain control. Recovering well. -Routine care and advancement -Anticipate discharge tomorrow VS,Damian, I+O VS, Damian, I+O Laboratory Tests 02/03/19 06:14 Red Blood Count 2.95 L, Mean Corpuscular Volume 87.8, Mean Corpuscular Hemoglobin 29.2, Mean Corpuscular Hemoglobin Concent 33.2, Red Cell Distribution Width 13.7, Aspartate Amino Transf (AST/SGOT) 20, Alanine Aminotransferase (ALT/SGPT) 14, Lactate Dehydrogenase 217, Total Bilirubin 0.3, Uric Acid 7.3 H Vital Signs Date Time Temp Pulse Resp B/P (MAP) Pulse Ox O2 Delivery O2 Flow Rate FiO2 02/03/19 06:29 98.0 92 18 132/91 (105) 98 I&O- Last 24 Hours up to 6 AM 02/03/19 06:00 Intake Total 3236 ml Output Total 1225 ml Balance 2011 ml GME ATTESTATION GME ATTESTATION My faculty preceptor for this patient encounter was physically present during the encounter and was fully available. All aspects of the patient interview, examination, medical decision making process, and medical care plan development were reviewed and approved by the faculty preceptor. The faculty preceptor is aware and concurs with the plan as stated in the body of this note and will attest to such by his/her cosignature. SHELLEY SARABIA DO Feb 03, 2019 07:22
[2019-02-03] MEDS: PRENATAL VITAMINS CHEWABLE TABLET PO SCH (08:52)
[2019-02-03 09:56] VITALS: BP 116/69
[2019-02-03 14:52] VITALS: BP 121/78
[2019-02-03 18:01] VITALS: BP 132/82
--- NOTE | 2019-02-03 18:27 | DN ---
DATE: 02/02/2019 at 1458 STATUS: Delivered. Spontaneous vaginal delivery. PROVIDER: Andreia Douglas CNM, WHNP ANESTHESIA: Epidural. ESTIMATED BLOOD LOSS: 250 mL. FINDINGS: Male, 7 pounds, 5 ounces, 3310 grams, preeclampsia. The patient is a 23-year-old female who is now a 1, para 1-0-0-1 at 37 weeks and two days gestation. She presented to labor and delivery for an induction of labor at 37 weeks with preeclampsia. She received Cytotec, Fabian bulb, and IV pitocin for her induction. She progressed to fully dilated at 1229 and pushed to a living male in the right occiput posterior (ROP) positive with restitution to right occiput transverse (ROT) at 1458. The anterior shoulders delivered with ease and the corpus immediately followed. The baby was placed on the maternal abdomen, active and crying with stimulation. The cord was clamped times two after pulsations ceased and cut by the father of the baby. A three-vessel cord was noted. The placenta delivered spontaneously and intact at 1505. Uterine hemostasis was achieved via rapid infusion of IV pitocin and fundal massage. The cervix, perineum, and vagina were inspected and found to have a second-degree perineal laceration that was repaired with 3.[address]-1 until hemostasis was achieved. Mother plans to bottle feed her . She is naming him Logyn. Terminal meconium was noted after delivery of the body. Baby and mother are in stable condition. All counts of instruments and sponges are correct.
[2019-02-03 22:00] VITALS: BP 119/63
[2019-02-04 02:00] VITALS: BP 103/55
[2019-02-04 06:00] VITALS: BP 117/75
[2019-02-04] MEDS: PRENATAL VITAMINS CHEWABLE TABLET PO SCH (10:06)
[2019-02-04 10:11] VITALS: BP 129/88
== END 2019-02-04 12:55 | disposition home or self-care (01) | DRG 807 ==
LOC: M LDO 17:10 → M LDI 18:43 → M OBS 02-02 17:15
PROVIDERS: ADMIT Advanced Practice Midwife; ATTEND Advanced Practice Midwife
PROC: 10E0XZZ Delivery of Products of Conception, External Approach (ICD-10-PCS; principal; 2019-02-02)
PROC: 0KQM0ZZ Repair Perineum Muscle, Open Approach (ICD-10-PCS; 2019-02-02)
PROC: 3E0P7GC Introduction of Other Therapeutic Substance into Female Reproductive, Via Natural or Artificial Opening (ICD-10-PCS; 2019-02-02)
DX: O14.94 Unspecified pre-eclampsia, complicating childbirth (principal); Z37.0 Single live birth; Z3A.37 37 weeks gestation of pregnancy; O99.824 Streptococcus B carrier state complicating childbirth; O70.1 Second degree perineal laceration during delivery

== ENCOUNTER → 2019-07-27 | Outpatient (REF) | payer OTHER | LOC: M SFHCWAGY 13:49 | PROVIDERS: ATTEND Advanced Practice Midwife | DX: Z12.4 Encounter for screening for malignant neoplasm of cervix (principal) | CPT/HCPCS: 87624; G0123 ==